=== PATIENT | female | born 1985 | race Caucasian/White ===

== ENCOUNTER 2018-07-05 12:31 | Day surgery (SDC) | payer OTHER, SELFPAY ==
[2018-07-03 12:08] VITALS: BMI 34.4
[2018-07-05] VITALS (7 sets, daily range): BP systolic 122–132; BP diastolic 70–80; PULSE 74–84; RESP 15–20; TEMP 36.2–36.8; O2SAT 90–100; BMI 32.8
--- NOTE | 2018-07-05 | PATH_ITS ---
[facility] Accession Number: [id number] . 01 Material submitted: . ENDOMETRIAL CURRETINGS WITH FIBROID . 02 Diagnosis: Endometrial Curetting with Fibroid, Operative Hysteroscopy Submucosal Myomectomy (Weight 41 grams in Aggregate): Fragments of myometrium, some with extensive hyalinization, consistent with leiomyoma, in the appropriate clinical context. Please see comment. Scant portions of weakly proliferative endometrial tissue; negative for glandular hyperplasia, cytologic atypia, and malignancy. MRV/07/09/2018 . 02 Comment: There is no evidence of necrosis, significant cytologic atypia, or significantly increased mitotic activity in the myometrial tissue fragments. . 02 Electronically signed: . Erendira Galvez MD, Pathologist NPI- [id number] . 01 Gross description: . Received in formalin, labeled endometrial curetting w/fibroid, are multiple fragments of borja, focally white whorled and hemorrhagic tissue (41 grams, 8.5 x 7.5 x 3.2 cm in aggregate). Entirely submitted in cassettes [id number]. ([id number]) /MRV . 02 Pathologist provided ICD-10: D25.9 . 02 CPT . 070201 Performed at: 01 [facility] [address], [place], [place] [id number] MD Parveen Pastrana MD Phone: [phone] Performed at: 02 [facility] [address] [place], [place] [id number] MD Wilver Peña MD Phone: [phone]
--- NOTE | 2018-07-05 12:56 | P.OP.PRE_ITS ---
Pre-operative Note Interval Note Pre-op Check: Yes History & Physical Reviewed by Physician Changes: Yes H&P completed within 30 days and has changed as indicated here:: Patient has discussed plan with her spouse and now prefers to NOT have the ablation today ( as that would affect future child-bearing). Plan for hysteroscopy, D&C, and probably submucosal myomectomy only today.
[2018-07-05] MEDS: LACTATED RINGERS 1,000 ML 42 ML IV ×2 (13:02→13:49)
[2018-07-05] MEDS: CEFAZOLIN 2 GM/100 ML FROZ.PIGGY IV (13:05)
[2018-07-05] MEDS: BUPIVACAINE 0.25% W/ EPI VIAL 50 ML INJ (13:37)
--- NOTE | 2018-07-05 13:40 | SUR.OPER ---
Lithotomy on padded OR bed, head on pillow, arms secured on padded arm boards at <90 degrees abduction. Legs secured in padded yellow fins stirrups.
--- NOTE | 2018-07-05 15:49 | SUR.OPER ---
I&O deficit after hysteroscopy approximately 750 ml
--- NOTE | 2018-07-05 15:58 | PM.GYNOP.1 ---
Operative Date/Time/Diagnoses Date of procedure: 07/05/18 Time of procedure: 13:30 Pre-op diagnosis: Symptomatic fibroid uterus, abnormal uterine bleeding, anemia Post-op diagnosis: same Procedure: Procedures Operation Date: 07/05/18 12:45 Actual Procedures Side Surgeon p Hysteroscopy D&C Operative hysteroscopy Submucosal Myomectomy Krystin Lehman MD Indications: The patient patient is a 32-year-old 0 here for operative hysteroscopy, dilation and curettage, and probable submucosal myomectomy for surgical management of uterine fibroids and severe menorrhagia. She is currently taking high-dose control pills to manage heavy bleeding that she has had for the past several weeks, resulting in anemia (preop HCT 30.9%). She is also taking iron 3 times daily. She verbalizes no desire for childbearing, and she initially wanted to have an endometrial ablation with surgery today, as her submucosal myomectomy in January 2018 did not yield long-term benefit. However, today, she reports that her spouse is not certain of no future childbearing, and she wishes to forego the ablation. Her hysteroscopy in January of 2018 noted 2 large submucosal fibroids which were removed with the cautery. She had a Judy intrauterine device placed at the same time, which unfortunately quickly expelled after surgery. The alternatives, risks, benefits, limitations, expectations of surgery discussed, and the consent was reviewed and signed prior to the surgery. Surgeon: Krystin Lehman Anesthesia Type: General and Local Operative Notes Findings: Exam under anesthesia: Uterus mid plane to slightly retroverted and approximately 8 weeks in size. No adnexal masses were palpable. Operative findings: Approximately 3 cm submucosal, pedunculated fibroid seen originating from the right lateral, mid portion of the endometrium. There was also a fundal fibroid measuring approximately 2 cm visible under the endometrium midline. The left tubal ostium was seen; however, the right tubal ostia was obscured by the fibroid. At the completion of the case the majority of the fibroid was removed. However, there was some residual tissue at the posterior and right aspect of the fibroid. Total sorbitol fluid in was 8 bags (24,000 mL), and the fluid deficit at the completion of case was approximately 750 mL, estimating unmeasurable loss on the sheets, drapes, blankets, and floor; hence the decision to complete the surgery that time. Closure Type: not applicable Specimen(s): other (Endometrial curettings and fibroid) Estimated blood loss (mL): 100 Blood products transfused: none Procedure in detail: The patient was taken to the operating room where general anesthesia with LMA was administered without difficulty. She was then placed in the high dorsal lithotomy position with her lower extremities in [place] stirrups. Exam under anesthesia was then performed with the findings as noted above. Perineum and vagina were then prepped and draped in a sterile fashion, and in-and-out catheterization was performed. Procedure Time-Out was performed. A sterile bivalve speculum was then placed. The posterior lip of the cervix was then grasped with a single-toothed tenaculum. Local anesthetic using 0.25% Marcaine with epinephrine was then injected at the 12:00, 2:00, 4:00, 7:00, and 10:00 positions for a paracervical block. The cervix was then serially dilated until a 22 F 30-degree hysteroscope could be gently advanced to the uterine fundus. Using sterile saline for distention, the uterine cavity was visualized with the findings as noted above. The distention fluid was then switched to sorbitol, and the hysteroscope changed to the operative hysteroscope. Using loop electrocautery, the pedunculated submucosal fibroid was cauterized, and the majority of tissue removed piecemeal. This was performed using multiple passes with the scope and the loop cautery device. Additionally tissue was grasped with polyp forceps, a ring forceps, and Reyes's forceps to remove large amounts of tissue. Sharp curettage was offered also performed to remove fibroid tissue. Given the fluid imbalance of approximately 750 mL and uncertainty regarding the amount of fluid on the sheet, drapes, and floor, the decision was made to complete the surgery at this time. Some residual tissue was removed one last time using polyp forceps and a ring forcep. The tenaculum was then removed, and the tenaculum sites hemostatic with gentle pressure with a sponge stick. At this point, the procedure was deemed complete. Sponge, lap, and needle count were correct x3. There were no complications. The patient was then taken to the recovery room in stable condition. Complications: none Post-operative Condition: stable Disposition: observation Plan for aftercare: See discharge instructions.
--- NOTE | 2018-07-05 16:11 | P.OP_ITS ---
Operative Date/Time/Diagnoses Date of procedure: 07/05/18 Time of procedure: 13:30 Pre-op diagnosis: Symptomatic fibroid uterus, abnormal uterine bleeding, anemia Post-op diagnosis: same Procedure: Procedures Operation Date: 07/05/18 12:45 Actual Procedures Side Surgeon p Hysteroscopy D&C Operative hysteroscopy Submucosal Myomectomy Krystin Lehman MD Indications: The patient patient is a 32-year-old 0 here for operative hysteroscopy, dilation and curettage, and probable submucosal myomectomy for surgical management of uterine fibroids and severe menorrhagia. She is currently taking high-dose control pills to manage heavy bleeding that she has had for the past several weeks, resulting in anemia (preop HCT 30.9%). She is also taking iron 3 times daily. She verbalizes no desire for childbearing, and she initially wanted to have an endometrial ablation with surgery today, as her submucosal myomectomy in January 2018 did not yield long- term benefit. However, today, she reports that her spouse is not certain of no future childbearing, and she wishes to forego the ablation. Her hysteroscopy in January of 2018 noted 2 large submucosal fibroids which were removed with the cautery. She had a Judy intrauterine device placed at the same time, which unfortunately quickly expelled after surgery. The alternatives, risks, benefits , limitations, expectations of surgery discussed, and the consent was reviewed and signed prior to the surgery. Surgeon: Krystin Lehman Anesthesia Type: General and Local Operative Notes Findings: Exam under anesthesia: Uterus mid plane to slightly retroverted and approximately 8 weeks in size. No adnexal masses were palpable. Operative findings: Approximately 3 cm submucosal, pedunculated fibroid seen originating from the right lateral, mid portion of the endometrium. There was also a fundal fibroid measuring approximately 2 cm visible under the endometrium midline. The left tubal ostium was seen; however, the right tubal ostia was obscured by the fibroid. At the completion of the case the majority of the fibroid was removed. However, there was some residual tissue at the posterior and right aspect of the fibroid. Total sorbitol fluid in was 8 bags ( 24,000 mL), and the fluid deficit at the completion of case was approximately 750 mL, estimating unmeasurable loss on the sheets, drapes, blankets, and floor ; hence the decision to complete the surgery that time. Closure Type: not applicable Specimen(s): other (Endometrial curettings and fibroid) Estimated blood loss (mL): 100 Blood products transfused: none Procedure in detail: The patient was taken to the operating room where general anesthesia with LMA was administered without difficulty. She was then placed in the high dorsal lithotomy position with her lower extremities in [place] stirrups. Exam under anesthesia was then performed with the findings as noted above. Perineum and vagina were then prepped and draped in a sterile fashion, and in-and-out catheterization was performed. Procedure Time-Out was performed. A sterile bivalve speculum was then placed. The posterior lip of the cervix was then grasped with a single-toothed tenaculum. Local anesthetic using 0.25% Marcaine with epinephrine was then injected at the 12:00, 2:00, 4:00, 7:00, and 10:00 positions for a paracervical block. The cervix was then serially dilated until a 22 F 30-degree hysteroscope could be gently advanced to the uterine fundus. Using sterile saline for distention, the uterine cavity was visualized with the findings as noted above. The distention fluid was then switched to sorbitol, and the hysteroscope changed to the operative hysteroscope. Using loop electrocautery, the pedunculated submucosal fibroid was cauterized, and the majority of tissue removed piecemeal. This was performed using multiple passes with the scope and the loop cautery device. Additionally tissue was grasped with polyp forceps, a ring forceps, and [place]'s forceps to remove large amounts of tissue. Sharp curettage was offered also performed to remove fibroid tissue. Given the fluid imbalance of approximately 750 mL and uncertainty regarding the amount of fluid on the sheet, drapes, and floor, the decision was made to complete the surgery at this time. Some residual tissue was removed one last time using polyp forceps and a ring forcep. The tenaculum was then removed, and the tenaculum sites hemostatic with gentle pressure with a sponge stick. At this point, the procedure was deemed complete. Sponge, lap, and needle count were correct x3. There were no complications. The patient was then taken to the recovery room in stable condition. Complications: none Post-operative Condition: stable Disposition: observation Plan for aftercare: See discharge instructions.
== END 2018-07-05 16:45 | disposition home or self-care (01) ==
PROVIDERS: Family Provider Family Medicine; PCP Family Medicine; Visit Provider Obstetrics & Gynecology
PROC: 0U5B8ZZ Destruction of Endometrium, Via Natural or Artificial Opening Endoscopic (ICD-10-PCS; CPT 58563; principal; 2018-07-05 12:45)
DX: D25.0 Submucous leiomyoma of uterus (principal); D64.9 Anemia, unspecified; F41.9 Anxiety disorder, unspecified; D68.51 Activated protein C resistance
CPT/HCPCS: 58561; 88305; J0690; J1100; J2405; J2704; J3010

== ENCOUNTER → 2020-11-30 10:02 | Outpatient (CLI) | payer OTHER, SELFPAY ==
[2020-11-30 10:49] LABS: Add Manual Diff / Slide Review NO; Basophils Absolute Auto 0 /uL (0-100); Basophils Percent Auto 0.4 % (0-2); Eosinophils Absolute Auto 0 /uL (0-450); Eosinophils Percent Auto 0.6 % (2-4); Hematocrit 32.7 % (36-46); Hemoglobin 10.9 g/dL (12.0-16.0); Lymphocytes Absolute Auto 2500 /uL (1100-4500); Lymphocytes Percent Auto 32.5 % (25-40); Mean Corpuscular HGB Conc 33.2 % (30-36); Mean Corpuscular Hemoglobin 26.4 PG (26-34); Mean Corpuscular Volume 79.6 fL (80-100); Monocytes Absolute Auto 700 /uL (0-900); Monocytes Percent Auto 9.8 % (3-14); Neutrophils Absolute Auto 4300 /uL (1500-7000); Neutrophils Percent Auto 56.7 % (50-75); Platelet Count 470 X10^3/uL (150-400); Red Blood Cell Count 4.11 X10^6/uL (4.0-5.2); Red Cell Distribution Width 14.8 % (11.6-14.8); White Blood Cell Count 7.6 X10^3/uL (4.5-11.0)
[2020-11-30 11:53] LABS: Alanine Aminotransferase 27 IU/L (<35); Albumin 3.9 g/dL (3.5-5.0); Albumin Globulin Ratio 1.2 (1.0-2.8); Alkaline Phosphatase 67 U/L (38-126); Aspartate Aminotransferase 28 IU/L (14-36); BUN Creatinine Ratio 12.8 (6-22); Bilirubin Total 0.4 mg/dL (0.2-1.3); Blood Urea Nitrogen 10 mg/dL (7-17); Calcium 8.9 mg/dL (8.4-10.2); Carbon Dioxide 26 mmol/L (22-32); Chloride 105 mmol/L (98-107); Cholesterol 202 mg/dL (140-199); Estimated Glomerular Filt Rate > 60.0 mL/min (>60); Globulin 3.2 g/dL (1.7-4.1); Glucose 94 mg/dL (70-100); HDL Cholesterol 53 mg/dL (40-60); HEMOLYSIS < 15 (0-50); LDL Cholesterol Calculated 122 mg/dL (<100); Potassium 4.4 mmol/L (3.4-5.1); Sodium 136 mmol/L (137-145); Total Protein 7.1 g/dL (6.3-8.2); Triglycerides 137 mg/dL (35-150)
[2020-11-30 12:14] LABS: Free T4, Direct Thyroxine 0.92 ng/dL (0.78-2.19)
[2020-11-30 12:28] LABS: Thyroid Stimulating Hormone 1.55 uIU/mL (0.47-4.68)
== END ==
PROVIDERS: Family Provider Family Medicine; PCP Registered Nurse; Referring Provider Registered Nurse; Visit Provider Registered Nurse
DX: D64.9 Anemia, unspecified (principal); F32.9 Major depressive disorder, single episode, unspecified; Z83.42 Family history of familial hypercholesterolemia
CPT/HCPCS: 36415; 80053; 80061; 84439; 84443; 85025

== ENCOUNTER → 2020-12-22 10:32 | Outpatient (CLI) | payer OTHER, SELFPAY ==
--- NOTE | 2020-12-22 10:37 | DI.US.S_ITS ---
PROCEDURE: US PELVIC COMPLETE INDICATIONS: EVALUATE FIBROIDS; CHECK IUD PLACEMENT TECHNIQUE: Real-time scanning was performed of the pelvic organs, with image documentation. Additional endovaginal scanning was necessary due to incomplete visualization of the adnexal and endometrial structures by transabdominal scanning. COMPARISON: None. FINDINGS: Uterus: Uterus is normal in size at 7.2 x 5.8 x 6.5 cm. The endometrium measures 7 mm in combined thickness. Hypoechoic uterine lesions are seen, which are attributed to fibroids. They measure as follows: Right uterus, submucosal, 3 x 2.3 x 2.4 cm Right anterior uterus, intramural, 3.6 x 2.3 x 2.6 cm Left posterior uterus, intramural, 1.7 x 1.6 x 2.3 cm. The IUD is poorly seen, secondary to the fibroids. Ovaries: The right ovary measures 3.1 x 1.3 x 2.3 cm. The left ovary measures 2.2 x 1.7 x 2.7 cm. The ovaries have a normal sonographic appearance. No adnexal masses are seen. Other: No pathologic free abdominal or pelvic fluid. IMPRESSION: Several uterine fibroids are seen, including a 3 cm submucosal fibroid on the right. The IUD is poorly seen, secondary to the fibroids. Dictated by: Richard Gaffney M.D. on 12/22/2020 at 10:39 Approved by: Richard Gaffney M.D. on 12/22/2020 at 10:40
== END ==
PROVIDERS: Family Provider Family Medicine; PCP Registered Nurse; Referring Provider Obstetrics & Gynecology; Visit Provider Obstetrics & Gynecology
DX: D25.1 Intramural leiomyoma of uterus (principal); D25.2 Subserosal leiomyoma of uterus; Z97.5 Presence of (intrauterine) contraceptive device
CPT/HCPCS: 76830; 76856